=== PATIENT | female | born 1990 | race Caucasian/White ===

== ENCOUNTER → 2019-08-16 | Outpatient (CLI) | payer OTHER ==
[2019-08-16 14:37] LABS: BASO # 0.1 10^3/uL (0.0-0.2); BASO % 0.8 % (0.0-1.0); EOS % 0.5 % (0.0-3.0); HEMATOCRIT 37.2 % (36.0-47.0); LYMPH # 1.4 10^3/uL (1.5-5.0); LYMPH % 22.8 % (24.0-44.0); MEAN CORPUSCULAR HEMOGLOBIN 32.4 pg (27.0-33.0); MEAN CORPUSCULAR HGB CONC 34.9 g/dl (32.0-36.5); MEAN CORPUSCULAR VOLUME 92.8 fl (80.0-96.0); MONO # 0.4 10^3/uL (0.0-0.8); MONO % 6.5 % (0.0-5.0); NEUTROPHILS # 4.2 10^3/uL (1.5-8.5); NEUTROPHILS % 69.2 % (36.0-66.0); PLATELET COUNT, AUTOMATED 255 10^3/uL (150-450); RED BLOOD COUNT 4.01 10^6/uL (4.00-5.40); WHITE BLOOD COUNT 6.1 10^3/uL (4.0-10.0)
[2019-08-16 21:39] LABS: CHLAMYDIA DNA AMPLIFICATION NEGATIVE (NEGATIVE); GC DNA AMPLIFICATION NEGATIVE (NEGATIVE)
[2019-08-17 10:24] LABS: HEPATITIS C VIRUS ABY INDEX 0.1 INDEX (<0.8); HIV 1&2 SCREEN CENTAUR NEGATIVE (NEGATIVE); RUBELLA IgG QUALITATIVE IMMUNE (IMMUNE)
== END ==
LOC: M PLALAB 11:25
PROVIDERS: ATTEND Advanced Practice Midwife
DX: Z3A.08 8 weeks gestation of pregnancy (principal)

== ENCOUNTER → 2019-08-17 | Outpatient (REF) | payer OTHER | LOC: M LABDRAWC 16:25 | PROVIDERS: ATTEND Advanced Practice Midwife | DX: Z3A.08 8 weeks gestation of pregnancy (principal) ==

== ENCOUNTER → 2019-10-19 | Outpatient (CLI) | payer OTHER ==
--- NOTE | 2019-10-19 14:39 | REP ---
Surgical ultrasound for anatomy: There is a single intrauterine gestation in a vertex presentation. There is movement and cardiac activity. The heart rate is 153 beats per minute. The placenta is anterior. There is no previa or abruptio. Placenta is grade zero. The amniotic fluid volume subjectively is normal. The cervix measures 3.5 cm length. Gestational age by today's ultrasound is 18 weeks 2 days/ABRAN 03/19/2020. Gestational age by LMP is 18 weeks 4 days/ABRAN of 03/17/2020. weight is 197 grams/0 pounds, 8 ounces. This is the 31st percentile for 18 weeks 4 days. The following anatomic structures are identified and are unremarkable: Cranium, choroid plexus, cavum septum pellucidum, cerebellum, facial profile, upper lip, face, diaphragm, stomach, cord insertion, three-vessel cord, kidneys, bladder, spine and upper lower extremities. Suboptimally demonstrated because of position are the lungs, four-chamber heart and the cardiac right and left ventricular outflow tract. A followup study dedicated to these structures might be considered. Electronically Signed by Leonides Bishop MD 10/19/2019 02:30 P
== END ==
LOC: M RAD 13:06
PROVIDERS: ATTEND Advanced Practice Midwife
DX: Z34.92 Encounter for supervision of normal pregnancy, unspecified, second trimester (principal)

== ENCOUNTER → 2019-11-09 | Outpatient (CLI) | payer OTHER ==
--- NOTE | 2019-11-09 15:12 | REP ---
OBSTETRIC SONOGRAPHY: HISTORY: Supervision of followup anatomy, four-chamber heart and outflow tract views. FINDINGS: Scanning through the gravid uterus demonstrates a single living intrauterine gestation in a breech lie. motion is observed and heart rate is recorded at 140 beats per minute. An anterior grade 0 placenta is seen without evidence of previa or abruption. Amniotic fluid is subjectively normal. Closed cervical length measured transabdominally is 4.9 cm. No extrauterine abnormalities observed. There has been appropriate interval growth. Four-chamber heart and left and right ventricular outflow tract views were visualized today and felt to be unremarkable. Biometry Chart: BPD 5.2 cm = 21 weeks 5 days HC 18.8 cm = 21 weeks 1 day AC 16.3 cm = 21 weeks 3 days FL 3.5 cm = 21 weeks 0 days HL 3.3 cm = 21 weeks 1 day HC/AC ratio normal 1.15 Cephalic index normal 0.78. Estimated weight 409 grams, 0 pounds 14 ounces, 34th percentile for 21 weeks 4 days. IMPRESSION: Viable single intrauterine gestation at 21 weeks 0 days by today's composite sonographic criteria. Expected gestational age estimate based on prior sonography is 21 weeks 4 days. ABRAN by prior sonography March 17, 2020. anatomic survey is felt to be complete in conjunction with the prior study.
== END ==
LOC: M WHC 10:16
PROVIDERS: ATTEND Advanced Practice Midwife
DX: Z34.82 Encounter for supervision of other normal pregnancy, second trimester (principal)

== ENCOUNTER → 2019-12-22 | Outpatient (REF) | payer OTHER ==
[2019-12-22 12:53] LABS: HEMOGLOBIN 11.9 g/dl (12.0-15.5); MEAN CORPUSCULAR HEMOGLOBIN 33.3 pg (27.0-33.0); MEAN CORPUSCULAR VOLUME 95.2 fl (80.0-96.0); PLATELET COUNT, AUTOMATED 262 10^3/uL (150-450); RED BLOOD COUNT 3.57 10^6/uL (4.00-5.40); WHITE BLOOD COUNT 7.7 10^3/uL (4.0-10.0)
== END ==
LOC: M PLALAB 09:54
PROVIDERS: ATTEND Specialist
DX: Z34.82 Encounter for supervision of other normal pregnancy, second trimester (principal)

== ENCOUNTER → 2020-02-24 | Outpatient (REF) | payer OTHER | LOC: M SFHCWAGY 10:10 | PROVIDERS: ATTEND Specialist | DX: Z34.83 Encounter for supervision of other normal pregnancy, third trimester (principal) ==

== ENCOUNTER 2020-03-22 04:29 | Inpatient (IN) | payer OTHER ==
[~2020-03-22] VITALS: Ht 160 cm; Wt 81.0 kg
[2020-03-22] VITALS (9 sets, daily range): BP systolic 109–124; BP diastolic 57–70
[2020-03-22 05:24] LABS: HEMATOCRIT 36.3 % (36.0-47.0); HEMOGLOBIN 12.4 g/dl (12.0-15.5); MEAN CORPUSCULAR HEMOGLOBIN 32.3 pg (27.0-33.0); MEAN CORPUSCULAR HGB CONC 34.2 g/dl (32.0-36.5); MEAN CORPUSCULAR VOLUME 94.5 fl (80.0-96.0); PLATELET COUNT, AUTOMATED 201 10^3/uL (150-450); RED BLOOD COUNT 3.84 10^6/uL (4.00-5.40); WHITE BLOOD COUNT 6.7 10^3/uL (4.0-10.0)
[2020-03-22] MEDS ORDERED: OXYTOCIN 30 UNITS IN 0.9% NaCl 500ML IV BAG (J2590) As Ordered ONE (07:08)
[2020-03-22] MEDS ORDERED: FENTANYL 2MCG/ML ROPIVACAINE 0.2% IN 0.9% NACL 100ML IVBAG As Ordered ONE (07:09)
[2020-03-22] MEDS ORDERED: DOCUSATE SODIUM 100 MG CAP PO PRN (08:45)
[2020-03-22] MEDS ORDERED: MEASLES,MUMPS,RUBELLA VACCINE INJ (MMR-II) (90707) SC SCH (08:45)
[2020-03-22] MEDS ORDERED: METHYLERGONOVINE MALEATE 0.2 MG TAB PO PRN (08:45)
[2020-03-22] MEDS ORDERED: ACETAMINOPHEN TAB 650MG DOSE (2X325MG) PO PRN (08:45)
[2020-03-22] MEDS ORDERED: IBUPROFEN 600MG TAB PO PRN (08:45)
[2020-03-22] MEDS ORDERED: ONDANSETRON 4MG/2ML VIAL IV PRN (08:45)
[2020-03-22] MEDS ORDERED: OXYTOCIN DRIP 30 UNITS in IV 1 EA IV ONE (08:45)
[2020-03-22] MEDS ORDERED: RHOGAM 300 MCG (1500 IU) INJ (J2790) IM SCH (08:45)
[2020-03-22] MEDS ORDERED: DIBUCAINE 1% OINTMENT 30GM TOP PRN (08:45)
[2020-03-22] MEDS ORDERED: ACETAMINOPHEN 500 MG TAB PO PRN (08:45)
[2020-03-22] MEDS ORDERED: IBUPROFEN 800 MG TAB PO PRN (08:45)
[2020-03-22] MEDS ORDERED: PRENATAL VITAMINS CHEWABLE TABLET PO SCH (09:00)
[2020-03-22] MEDS: PRENATAL VITAMINS CHEWABLE TABLET PO SCH (09:00)
--- NOTE | 2020-03-22 12:46 | HPE ---
DATE OF ADMISSION: 03/22/2020 HISTORY OF PRESENT ILLNESS: Jamila is a 30-year-old, 3, para 1-0-1-1, at 40-5/7 weeks gestation, expected date of confinement (EDC) of 03/17/2020 based on last menstrual period and confirmed by first trimester ultrasound. She presents to labor and delivery today with report of spontaneous rupture of membranes of clear fluid at 0245, continued leakage of fluid and contractions starting about an hour ago. She does report some pink show. Denies heavy vaginal bleeding. The fetus has been active. Her care was [facility] at [facility] in the first trimester. Her course has been complicated by a history of gestational diabetes. She did fail her gestational diabetic screening and chose to do self monitoring for a few weeks and her glucoses remained in the normal values, so it was determined she was not gestational diabetic for this . OBSTETRICAL HISTORY: 2010 - elective termination. December 2016 - 7 pound 11 ounce female, vaginal delivery, following induction of labor due to gestational diabetes. OBSTETRIC LABS: AB+. Antibody screen negative. Syphilis negative. Gonorrhea and chlamydia negative. Hepatitis B surface antigen negative. HIV negative. Hepatitis C antibody negative. Rubella immune. Gestational diabetic screening 134. Urine culture no growth. GBS negative. PAST MEDICAL HISTORY: Noncontributory. SURGERIES: Dilation and curettage. FAMILY HISTORY: Hypertension, factor five Leiden blood clotting disorder, thyroid nodules, diabetes, breast cancer. SOCIAL HISTORY: The patient is . She is a nonsmoker. She denies alcohol and drug use. Denies history of any sexually transmitted infections. Denies history of abuse - physical, sexual and emotional. ALLERGIES: - PENICILLIN - AMOXICILLIN CURRENT MEDICATIONS: vitamins. OBJECTIVE: A full set of vital signs have yet to be recorded. She is alert and oriented x3. She does appear uncomfortable with her contractions. heart rate is 140 with moderate variability, positive accelerations, negative decelerations. Contractions are about every 4 minutes. They do palpate moderate. She is grossly ruptured. Clear fluid. Sterile Vaginal Exam: 2 cm dilated, 90% effaced, -2 station. ASSESSMENT: Intrauterine at 40-5/7 weeks. heart rate category one. Active labor at term. PLAN: Admit the patient to labor and delivery. Saline lock. Routine laboratories. Out of bed ad mat. Regular diet. The patient at this time would like to cope with her labor physiologically. She has been verbally consented for emergency surgery and blood products if necessary. I do anticipate labor progress and a vaginal delivery.
[2020-03-23 05:39] VITALS: BP 107/63
[2020-03-23] MEDS: PRENATAL VITAMINS CHEWABLE TABLET PO SCH (08:03)
--- NOTE | 2020-03-31 06:19 | DN ---
DATE: 03/22/2020 Predelivery Diagnosis: Term , labor. Postdelivery Diagnosis: Delivered. Procedure: Spontaneous vaginal delivery. Digital Solution Architect: Dr. Lloyd Bell Wire Spinner: Dr. Alexi San Anesthesia: None. Estimated Blood Loss: 300 mL. Findings: 8 pound 5 ounce male , Apgars 8 and 9. Delivery Summary: After a short second stage of approximately 10 minutes, the patient had spontaneous delivery of an 8 pound 5 ounce male , Apgars 8 and 9, under no delivery anesthesia. A loose nuchal cord times one was reduced manually. The shoulders delivered with ease. The was handed to the mother. The cord was doubly clamped and cut. The placenta delivered spontaneously and appeared to be intact. The patient received IV Pitocin immediately after delivery of the placenta. A small first degree perineal laceration did not require repair. Sponge counts were correct.
== END 2020-03-23 13:50 | disposition home or self-care (01) | DRG 560 ==
LOC: M LDO 04:29 → M LDI 04:49 → M OBS 10:35
PROVIDERS: ADMIT Advanced Practice Midwife; ATTEND Advanced Practice Midwife
PROC: 10E0XZZ Delivery of Products of Conception, External Approach (ICD-10-PCS; principal; 2020-03-22)
DX: O69.81X0 Labor and delivery complicated by cord around neck, without compression, not applicable or unspecified (principal); Z3A.40 40 weeks gestation of pregnancy; O70.0 First degree perineal laceration during delivery; Z37.0 Single live birth

== ENCOUNTER → 2023-12-31 | Outpatient (REF) | payer OTHER ==
[2023-12-31 14:29] LABS: Trichomonas vaginalis (AMP) NOT DETECTED (NEGATIVE)
[2023-12-31 14:53] LABS: GC DNA AMPLIFICATION NEGATIVE (NEGATIVE)
== END ==
LOC: M SFHCWAGY 12:22
PROVIDERS: ATTEND Nurse Practitioner Family
DX: Z11.3 Encounter for screening for infections with a predominantly sexual mode of transmission (principal); R87.610 Atypical squamous cells of undetermined significance on cytologic smear of cervix (ASC-US)